=== PATIENT | female | born 1950 | race Two or more races ===

== ENCOUNTER 2019-06-26 00:14 | Inpatient (IN) | payer MEDICARE, MEDICAID ==
[~2019-06-26] VITALS: Ht 160 cm; Wt 71.7 kg
[2019-06-26] MEDS ORDERED: IPRATROPIUM BROMIDE 14 GM INHALER (or 12.9 GM) IH PRN (02:00)
[2019-06-26] MEDS ORDERED: MORPHINE SULFATE INJ 2 MG/ML DISP.SYRIN IV PRN (02:00)
[2019-06-26] MEDS ORDERED: ONDANSETRON HCL/PF 4 MG/2 ML VIAL IVP PRN (02:00)
[2019-06-26] MEDS ORDERED: ALBUTEROL FS 2.5 MG/0.5 ML VIAL.NEB NEB PRN (02:00)
[2019-06-26] MEDS ORDERED: MAG HYDROX/AL HYDROX/SIMETH 30 ML UDC PO PRN (02:00)
[2019-06-26] MEDS ORDERED: NITROGLYCERIN 0.4 MG/TAB BOTTLE SL PRN (02:00)
[2019-06-26] MEDS ORDERED: DOCUSATE SODIUM 100 MG CAPSULE PO PRN (02:00)
--- NOTE | 2019-06-26 02:00 | NUR ---
RN ADMITTING NOTES DIRECT ADMIT FROM [facility] ARRIVED TO FLOOR VIA EMT COBY. RECEIVED REPORT FROM [employer] LICENSED CLUB MANAGER PREM. Pt IS A/OX4, VERBAL, ABLE TO MAKE NEEDS KNOWN, INDONESIAN SPEAKING ONLY (FROM [place]). DAUGHTER IN LAW AT BEDSIDE. Pt IS AMBULATORY WITH STEADY GAIT. IV ACCESS ON RAC #20G. ON TELE MONITOR SR. SAFETY MEASURES IN PLACE. BED LOW, LOCKED, HOB ELEVATED, SIDE RAILS UP, CALL LIGHT AND BEDSIDE TABLE WITHIN REACH. NOTIFIED TELEMETRY MONITOR HOSPITALIST AMY THAT DIRECT ADMIT HAS ARRIVED AWAITING ADMITTING ORDERS. WILL CARRY OUT ORDERS.
[2019-06-26] MEDS: IV NS 0.9% 1,000 ML IV SCH ×2 (03:07→15:55)
--- NOTE | 2019-06-26 03:30 | NUR ---
RN NOTES [facility] SHOWED THAT THEY TESTED Pt FOR INFLUENZA AND TEST CAME BACK POSITIVE FOR INFLUENZA B. PLACED Pt ON ISOLATION IN 316-2
--- NOTE | 2019-06-26 03:30 | NUR ---
RN NOTES SPOKE WITH ONCALL HOSPITALIST AMY CLINTON RAILROAD ENGINEER. INFORMED HER OF Pt's TROPONIN LEVEL OF 1.271. SAID TO ORDER STAT EKG. ALSO INFORMED RAILROAD ENGINEER THAT PER FAMILY & Pt's REQUEST THEY DO NOT LIKE TO TAKE NARCOTICS FOR PAIN AND IS REQUESTING FOR TYLENOL INSTEAD. RAILROAD ENGINEER SAID OK TO ORDER TYLENOL FOR PAIN. CLARIFIED WITH RAILROAD ENGINEER IN REGARDS TO DUPLICATE PRN NITRO ORDER (PER PHARMACY THE NITRO SL AND NITRO-BID PACKET IS CONSIDERED A DUPLICATE ORDER). RAILROAD ENGINEER SAID IT IS OK TO KEEP BOTH PRN NITRO SL & NITRO-BID PACKET ACTIVE PRN MED. WILL CALL NIGHT PHARMACY AND CLARIFY IT WITH THEM. WILL CARRY OUT ALL OTHER ORDERS.
[2019-06-26 03:45] VITALS: BP 153/81
[2019-06-26] MEDS: ACETAMINOPHEN 325 MG TABLET PO PRN ×3 (03:54→21:59)
[2019-06-26 04:00] VITALS: BP 115/65
[2019-06-26] MEDS ORDERED: NITROGLYCERIN PACKET 1 GM PACKET TD PRN (04:00)
--- NOTE | 2019-06-26 04:00 | NUR ---
RN NOTES Pt C/O PAIN & DISCOMFORT ON RAC WHERE IV SITE IS AND REQUESTING FOR THE IV TO BE REMOVED AND NEW ONE BE PLACED. NEW IV ACCESS STARTED ON LFA #22G. REMOVED RAC IV AND SECURED WITH GAUZE AND TAPE. NO S/S OF BLEEDING NOTED.
[2019-06-26 06:41] LABS: BASOPHILS % (AUTO) 0.4 % (0.0-2.0); EOSINOPHILS % (AUTO) 0.8 % (0.0-6.0); HEMATOCRIT 35 % (33-45); HEMOGLOBIN 11.9 g/dL (11.5-14.8); LYMPHOCYTES # (AUTO) 2.1 /CMM (0.8-4.8); LYMPHOCYTES % (AUTO) 37.8 % (20.0-44.0); MEAN CORPUSCULAR HGB CONC 34 g/dl (31.0-36.0); MEAN CORPUSCULAR VOLUME 88 fL (82-100); MONOCYTES # (AUTO) 0.5 /CMM (0.1-1.30); MONOCYTES % (AUTO) 9.5 % (2.0-12.0); NEUTROPHILS # (AUTO) 2.9 /CMM (1.8-8.9); NEUTROPHILS % (AUTO) 51.5 % (43.0-81.0); PLATELET COUNT (AUTO) 254 /CMM (150-450); WHITE BLOOD COUNT (AUTO) 5.7 K/uL (4.3-11.0)
[2019-06-26 06:50] LABS: ALBUMIN 3.1 g/dL (3.4-5.0); BILIRUBIN,TOTAL 0.4 mg/dL (0.2-1.0); CREATININE 0.9 mg/dL (0.6-1.3); MAGNESIUM 1.7 mg/dL (1.8-2.4); PHOSPHORUS 3.4 mg/dL (2.5-4.9); POTASSIUM 3.3 mmol/L (3.5-5.1); TOTAL PROTEIN, SERUM 6.8 g/dL (6.4-8.2)
[2019-06-26 06:55] LABS: THYROID STIMULATING HORMONE 2.403 uIU/mL (0.358-3.74)
--- NOTE | 2019-06-26 06:58 | NUR ---
RN CLOSING NOTES NO SIGNIFICANT CHANGES IN Pt's CONDITION. Pt REMAINS STABLE AT THIS TIME. NO S/S OF ACUTE DISTRESS OR SEVERE SOB NOTED. Pt IS RESTING COMFORTABLY IN BED. DAUGHTER AT BEDSIDE. TELE READING SR 65. SAFETY MEASURES IN PLACE. WILL ENDORSE TO DAYSHIFT RN FOR Pt's ERIKA.
--- NOTE | 2019-06-26 07:20 | NUR ---
RN OPENING NOTES RECEIVED PATIENT IN BED RESTING. A/OX4, WELSH SPEAKING, DAUGHTER AT BEDSIDE. NOT IN ANY FORM OF DISTRESS. NO SOB. DENIED PAIN OR DISCOMFORT AT THIS TIME. IV ACCESS INTACT AND PATENT. KEPT PATIENT SAFE AND COMFORTABLE. MAINTAINED ISOLATION PRECAUTIONS. BED IN LOW/LOCKED PSOITION, SIDERAILS UPX2,C ALL LIGHT IN REACH. WILL CONT TO MONIOTR ACCORDINGLY.
[2019-06-26] MEDS ORDERED: HYDR12.55 PO (07:31)
[2019-06-26] MEDS ORDERED: LOSA50TA39 PO (07:31)
[2019-06-26 08:00] VITALS: BP 112/60
[2019-06-26] MEDS ORDERED: IPRATROPIUM NEB FS 0.5 MG/2.5 ML AMPUL.NEB NEB PRN (08:00)
[2019-06-26] MEDS ORDERED: IOHEXOL-350 100 ML VIAL IV ONE (08:04)
[2019-06-26] MEDS ORDERED: IV NS 0.9% 250 ML IV ONE (08:04)
[2019-06-26] MEDS ORDERED: CT SWABBABLE VALVE TRANS SET 1 EA INFUS.SET MC ONE (08:04)
--- NOTE | 2019-06-26 08:05 | NUR ---
RN NOTES LAB REPORTED CRITICAL TROPONIN OF 1.336. DR LOZOYA AT [facility] [place] ST[facility] AND AWARE. PER MD, PATIENT TO HAVE CTA AND ECHO TODAY. KEPT NPO EXCEPT MEDS
--- NOTE | 2019-06-26 08:31 | NUR ---
rn notes went for CTA. picked up by [facility] Wahl
[2019-06-26] MEDS ORDERED: NITROGLYCERIN 0.4 MG/TAB BOTTLE ONE (08:43)
[2019-06-26] MEDS ORDERED: NITROGLYCERIN 0.4 MG/TAB BOTTLE SL ONE (09:00)
[2019-06-26] MEDS: ASPIRIN 81 MG TAB.CHEW PO SCH (09:42)
[2019-06-26] MEDS: OSELTAMIVIR PHOSPHATE 75 MG CAPSULE PO SCH ×2 (09:42→17:29)
[2019-06-26] MEDS ORDERED: LEVO137T24 PO (10:10)
[2019-06-26] MEDS ORDERED: OMEG1CAP PO (10:10)
[2019-06-26] MEDS ORDERED: CHOL100040 PO (10:10)
[2019-06-26] MEDS: Magnesium 1GM/D5W 100ML PREMIX 100 ML IV SCH ×2 (11:52→13:05)
[2019-06-26] MEDS ORDERED: POTASSIUM CHLORIDE 20 MEQ TAB.PRT.SR PO SCH (12:30)
[2019-06-26 16:13] VITALS: BP 120/62
--- NOTE | 2019-06-26 18:53 | NUR ---
RN CLOSING NOTES PATIENT IN STABLE CONDITION. NO SIGNIFICANT CHANGE OF CONDITION DURING THE SHIFT. ALL NEEDS ATTENDED AND PROVIDED. ALL DUE MEDS GIVEN ORDERED. KEPT PATIENT SAFE AND COMFORTABLE. ISOLATION PRECAUTIONS MAINTAINED. BED IN LOW/LOCKED POSITION, SIDERAILS UPX2, CALL LIGHT IN REACH. WILL ENDORSED TO NIGHT RN FOR ERIKA.
--- NOTE | 2019-06-26 19:26 | NUR ---
TREATING ENGINEER HELPER OPENING NOTES PATIENT RECEIVED A/O x4 IN BED WITH FAMILY IN THE ROOM. NO ACUTE DISTRESS NOTED, NO SOB, AND NO COMPLAINTS OF PAIN. PATIENT IS AMBULATORY WITH ASSISTANCE. IV LOCATED ON LEFT FA #22 RUNNING NS @ 74 ML/ HR. SAFETY PRECAUTIONS IN PLACE WITH BED IN LOWEST POSITION, BED RAILS UP x2, BREAKS, AND CALL LIGHT WITHIN REACH. WILL CONTINUE TO MONITOR.
[2019-06-26 20:19] VITALS: BP 126/70
[2019-06-26] MEDS: SIMVASTATIN 20 MG TABLET PO SCH (22:00)
--- NOTE | 2019-06-27 00:50 | NUR ---
[employer] MECHANIC NOTES PATIENT RECEIVED VIA GURNEY FROM ER ACCOMPANIED BY DAUGHTER AND ER NURSE. PATIENT IS A/Ox4, ONLY FARSI SPEAKING. NO SIGNS OF ACUTE DISTRESS, NO COMPLAINTS OF SOB, OR PAIN. PATIENT IS STABLE ON ROOM AIR. IV INTACT AND PATENT ON L FA #18. DAUGHTER WAS ABLE TO TRANSLATE EVERYTHING. PATIENT FEELS WEAK, SO AMBULATORY WITH ASSIST AND USE OF BED [place]. SAFETY PRECAUTIONS IN PLACE WITH BED IN LOWEST POSITION, BREAKS ON, SIDE RAILS UP x2, AND CALL LIGHT WITHIN REACH. ALL BELONGINGS WERE ACCOUNTED FOR, ID BAND PLACED, AND ALL CURRENT NEEDS MET. WILL CONTINUE TO MONITOR. Addendum: 06/27/19 at 0403 by SALLY MERCADO RN WRONG PATIENT
--- NOTE | 2019-06-27 02:50 | NUR ---
PATIENT'S CONTACTS PARVEZ (DAUGHTER) LOWELL (DAUGHTER) [phone] Addendum: 06/27/19 at 0404 by SALLY MERCADO RN WRONG PATIENT
[2019-06-27] MEDS: IV NS 0.9% 1,000 ML IV SCH ×2 (05:33→17:02)
--- NOTE | 2019-06-27 06:16 | NUR ---
CARDIO TECH CLOSING NOTES Patient is currently resting in bed with daughter at bedside. She is A/O x4, Amharic speaking. She is able to ambulate with assist. No signs of acute distress, no sob noted, and no current complaints of pain. Cough is present, with small amount of production. IV intact and patent running ns @ 75ml/hr. Safety precautions in place with bed in lowest position, side rails up x2, breaks on. All needs were attended to. Will endorse to oncoming shift about cuate.
[2019-06-27 07:12] LABS: BASOPHILS % (AUTO) 0.5 % (0.0-2.0); EOSINOPHILS % (AUTO) 3.8 % (0.0-6.0); HEMATOCRIT 35 % (33-45); HEMOGLOBIN 11.5 g/dL (11.5-14.8); LYMPHOCYTES # (AUTO) 2.8 /CMM (0.8-4.8); LYMPHOCYTES % (AUTO) 53.4 % (20.0-44.0); MEAN CORPUSCULAR HGB CONC 33 g/dl (31.0-36.0); MEAN CORPUSCULAR VOLUME 89 fL (82-100); MONOCYTES # (AUTO) 0.4 /CMM (0.1-1.30); MONOCYTES % (AUTO) 8.5 % (2.0-12.0); NEUTROPHILS # (AUTO) 1.8 /CMM (1.8-8.9); NEUTROPHILS % (AUTO) 33.8 % (43.0-81.0); PLATELET COUNT (AUTO) 262 /CMM (150-450); WHITE BLOOD COUNT (AUTO) 5.2 K/uL (4.3-11.0)
[2019-06-27 07:17] LABS: CALCIUM, SERUM 7.6 mg/dL (8.5-10.1); MAGNESIUM 2.2 mg/dL (1.8-2.4); PHOSPHORUS 2.7 mg/dL (2.5-4.9); POTASSIUM 4.3 mmol/L (3.5-5.1)
[2019-06-27 08:00] VITALS: BP 125/68
[2019-06-27] MEDS: ASPIRIN 81 MG TAB.CHEW PO SCH (08:32)
[2019-06-27] MEDS: OSELTAMIVIR PHOSPHATE 75 MG CAPSULE PO SCH ×2 (08:32→17:02)
--- NOTE | 2019-06-27 10:30 | NUR ---
MS RN NOTES-- PT WAS SEEN AND EXAMINED BY DR. MARINO W/ ORDERS TO D/C TELE. ORDERS READ BACK AND VERIFIED.
--- NOTE | 2019-06-27 13:00 | NUR ---
MS RN NOTES-- PT WAS SEEN AND EXAMINED BY DR. PECK. INFORMED DR. PECK RE: REVIEW OF MED REC.
[2019-06-27 15:58] VITALS: BP 118/71
--- NOTE | 2019-06-27 18:28 | NUR ---
MS RN CLOSING NOTES ALL DUE MEDS GIVEN, NEEDS MET AND RENDERED. PT REMAINS A/O X4, AFEBRILE. RESPIRATIONS ARE EVEN AND UNLABORED, NOT IN ANY ACUTE DISTRESS NOTED. PT DENIES ANY PAIN, SOB, N/V. PT IS CONTINENT W/ BOWEL/BLADDER. PT IS AMBULATORY W/ 1 STAFF ASSIST/SUPERVISION. TOLERATING PO. IV ACCESS TO LFA INTACT, NO INFILTRATION NOTED. DRESSING KEPT CLEAN AND DRY, TOLERATING IV FLUIDS, INFUSING @75ML/HR. ON DROPLET ISOLATION FOR INFLUENZA B, FAMILY AT BEDSIDE. SAFETY MEASURES ARE IN PLACE. CALL LIGHT IS LEFT WITHIN REACH. WILL ENDORSE TO NEXT SHIFT FOR CONTINUITY OF CARE.
[2019-06-27 19:00] VITALS: BP 142/72
--- NOTE | 2019-06-27 19:30 | NUR ---
MS RN NOTES PATIENT IN AWAKE IN BED, ALERT AND ORIENTED X 4. BREATHING EVEN AND UNLABORED ON ROOM AIR. DENIES ACUTE RESPIRATORY DISTRESS, NO ACUTE PAIN. IV ON LFA #22G RUNNING ON 75ML/HR, DRESSING IS CLEAN DRY AND INTACT. SHOWS NO SIGNS OF REDNESS, NO INFILTRATION. PATIENT IS ON DROPLET PRECAUTION ON INFLUENZA B. FAMILY IS AT BED SIDE. SAFETY PRECAUTION IN PLACE. BED IN LOWEST POSITION, LOCKED, AND CALL LIGHT KEPT WITHIN REACH. WILL CONTINUE TO MONITOR.
[2019-06-27 20:27] VITALS: BP 142/72
[2019-06-27] MEDS: SIMVASTATIN 20 MG TABLET PO SCH (21:36)
[2019-06-28] MEDS: IV NS 0.9% 1,000 ML IV SCH (02:11)
--- NOTE | 2019-06-28 06:35 | NUR ---
MS RN NOTES PATIENT ASLEEP IN BED, ALERT AND ORIENTED X 4. BREATHING EVEN AND UNLABORED ON ROOM AIR. DENIES ACUTE RESPIRATORY DISTRESS, NO ACUTE PAIN. IV ON LFA #22G RUNNING ON 75ML/HR, DRESSING IS CLEAN DRY AND INTACT. SHOWS NO SIGNS OF REDNESS, NO INFILTRATION. PATIENT IS ON DROPLET PRECAUTION ON INFLUENZA B. ALL MEDICATIONS DUE GIVEN. ALL PATIENT NEEDS MET. SAFETY PRECAUTION IN PLACE. BED IN LOWEST POSITION, LOCKED, AND CALL LIGHT KEPT WITHIN REACH. WILL ENDORSE TO ONCOMING NURSE.
--- NOTE | 2019-06-28 07:15 | NUR ---
MS RN OPENING NOTES RECEIVED PATIENT IN BED ASLEEP. AROUSABLE TO VERBAL AND TACTILE STIMULI. HOB ELEVATED. NO SOB. DENIES ANY C/O PAIN NOR DISCOMFORT. PER DTR AT BEDSIDE.SLEPT WELL THROUGHOUT THE NIGHT AND FEELS MUCH BETTER TODAY COMPARED TO YESTERDAY. LFA # 22 INTACT AND PATENT INFUSING NS @ 75ML/HR GLORIA WELL. BED IN LOWEST POSITION, LOCKED. BED SIDERAILS UP X2.
[2019-06-28 08:09] VITALS: BP 128/65
[2019-06-28] MEDS: ASPIRIN 81 MG TAB.CHEW PO SCH (09:41)
[2019-06-28] MEDS: OSELTAMIVIR PHOSPHATE 75 MG CAPSULE PO SCH ×2 (09:41→16:21)
[2019-06-28] MEDS: GUAIFENESIN/CODEINE 10 ML UDC PO PRN ×2 (15:28→15:50)
--- NOTE | 2019-06-28 15:30 | NUR ---
MS RN NOTES ROBITUSSIN WITH CODEINE NOT ADMINISTERED, PER DTR, PATIENT PASSES OUT WHEN SHE TAKES NARCOTICS. INFORMED DR. PECK FOR CHANGE OF ROBITUSSIN ORDER. AWAITING FOR RESPONSE
[2019-06-28 16:17] VITALS: BP 127/74
[2019-06-28] MEDS: GUAIFENESIN/D-METHORPHAN HB 5 ML UDC PO PRN ×2 (16:21→22:54)
[2019-06-28] MEDS: IV NS 0.9% 1,000 ML IV PRN (16:27)
--- NOTE | 2019-06-28 18:52 | NUR ---
MS RN CLOSING NOTES RESTING COMFORTABLY IN BED. DENIES ANY C/O PAIN NOR DISCOMFORT. FAMILY AT BEDSIDE. DENIES ANY C/O FEVER/CHILLS/N/V. CONTACT PRECAUTIONS OBSERVED AT ALL TIMES. LFA # 22 INTACT AND PATENT INFUSING NS @ 75ML/HR GLORIA WELL. BED IN LOWEST POSITION, LOCKED. BED SIDERAILS UP X2. IN NO APPARENT DISTRESS.
[2019-06-28] MEDS: ACETAMINOPHEN 325 MG TABLET PO PRN (19:45)
--- NOTE | 2019-06-28 20:00 | NUR ---
MS RN NOTES PATIENT IN BED RESTING COMFORTABLY, ALERT AND ORIENTED X 4. BREATHING EVEN AND UNLABORED ON ROOM AIR. NO S/SX OF ACUTE RESPIRATORY DISTRESS, DENIES PAIN OR DISCOMFORT AT THIS TIME. IV ON LFA #22G RUNNING ON 75ML/HR, DRESSING IS CLEAN DRY AND INTACT. NO SIGNS OF REDNESS, NO INFILTRATION. ON DROPLET PRECAUTION ON INFLUENZA B. FAMILY AT BEDSIDE. SAFETY PRECAUTION IN PLACE. BED IN LOWEST POSITION, LOCKED, AND CALL LIGHT KEPT WITHIN REACH.
[2019-06-28 20:39] VITALS: BP 138/78
[2019-06-28] MEDS: SIMVASTATIN 20 MG TABLET PO SCH (21:24)
[2019-06-29] MEDS: IV NS 0.9% 1,000 ML IV PRN (05:38)
--- NOTE | 2019-06-29 07:02 | NUR ---
RN CLOSING NOTES PATIENT ASLEEP, AROUSES EASILY, NO ACUTE DISTRESS NOTED. NO SIGNFICANT CHANGE OF CONDITION DURING THE SHIFT. PIV ON LFA 22G PATENT AND INTACT. REPOSITIONED FOR COMFORT. ALL NEEDS ATTENDED AND PROVIDED. ALL DUE MEDICATIONS GIVEN ORDERED. SAFETY PRECAUTIONS IN PLACE. ON DROPLET PRECAUTIONS IN PLACE. BED IN LOWEST LOCKED POSITION. SIDERAILS UPX2, CALL LIGHT WITHIN EASY REACH.
[2019-06-29 08:29] VITALS: BP 127/71
[2019-06-29] MEDS: ASPIRIN 81 MG TAB.CHEW PO SCH (10:58)
[2019-06-29] MEDS: OSELTAMIVIR PHOSPHATE 75 MG CAPSULE PO SCH (10:58)
[2019-06-29] MEDS: ACETAMINOPHEN 325 MG TABLET PO PRN (11:00)
--- NOTE | 2019-06-29 11:00 | NUR ---
RN NOTES ADMINISTERED TYLENOL 650 MG PO PRN FOR GENERALIZED PAIN PER PATIENT REQUEST 11/28. PATIENT WILL D/C HOME PER HOSPITALIST ORDER. DAUGHTER NEXT TO THE BED. CALL LIGHT WITHIN TO REACH. SAFETY PRECAUTION MAINTAINED ALL THE TIME.
--- NOTE | 2019-06-29 12:41 | NUR ---
MS/RN NOTE RECEIVED ORDER FROM DR SEVILLA TO DISCHARGE THE PATIENT HOME. THE ORDER IS READ BACK, VERIFIED. NOTED AND CARRIED OUT.
--- NOTE | 2019-06-29 13:19 | NUR ---
rn manager notes PATIENT DISCHARGED AT THIS TIME GOING HOME. PATIENT A/O X3, STABLE V/S WNL. MED RECONCILIATION AND DISCHARGE ORDER REVIEWED AND EXPLAINED TO PATIENT AND DAUGHTER. PATIENT VERBALIZED UNDERSTANDING. PRESCRIPTION HANDED TO THER PATIENT, PATIENT SIGN PAPERWORK. BELONGING WITH THE PATIENT. PATIENT WILL FOLLOW WITH PRIMARY MD, AND TAKE MEDICATION PRESCRIBED. ESCORTED PATIENT TO THE LOBBY FOR SAFETY. PATIENT CONTACT AND SERVICE CLERKS SUPERVISOR BY FAMILY PHONE #- [phone].
== END 2019-06-29 13:12 | disposition home or self-care (01) | DRG 871 ==
LOC: TELE 01:22 → MED 06-27 19:20
DX: A41.89 Other specified sepsis (principal); I21.4 Non-ST elevation (NSTEMI) myocardial infarction; E87.1 Hypo-osmolality and hyponatremia; I10 Essential (primary) hypertension; E03.9 Hypothyroidism, unspecified; E87.6 Hypokalemia; I25.10 Atherosclerotic heart disease of native coronary artery without angina pectoris; I25.84 Coronary atherosclerosis due to calcified coronary lesion; J10.1 Influenza due to other identified influenza virus with other respiratory manifestations; E78.5 Hyperlipidemia, unspecified; J10.82 Influenza due to other identified influenza virus with myocarditis
CPT/HCPCS: 36415; 75574; 80048-TC; 80053-TC; 80061-TC; 83735-TC; 84100-TC; 84443-TC; 84484-TC; 85025-TC; 85610-TC; 85730-TC; 87081-TC; 93307-TC; 94799-TC; G0378; J3475; J7030; J7050; Q9967

== ENCOUNTER 2019-07-03 12:19 | Outpatient (CLI) | payer MEDICARE, MEDICAID ==
[~2019-07-03 12:19] MED LIST: CHOL100040 PO; HYDR12.55 PO; LEVO137T24 PO; LOSA50TA39 PO; OMEG1CAP PO
[2019-07-03 12:26] VITALS: BP 128/69
== END 2019-07-03 23:59 | disposition home or self-care (01) ==
LOC: MSC 12:19
PROVIDERS: ATTEND Internal Medicine
DX: I21.9 Acute myocardial infarction, unspecified (principal); I10 Essential (primary) hypertension; E78.5 Hyperlipidemia, unspecified; E03.9 Hypothyroidism, unspecified; E87.1 Hypo-osmolality and hyponatremia; E87.6 Hypokalemia